=== PATIENT | female | born 1985 | race Caucasian/White ===

== ENCOUNTER 2022-01-01 18:42 | Emergency (ER) | payer OTHER, MEDICAID, SELFPAY ==
[2022-01-01 19:10] VITALS: BP 138/69; PULSE 104; RESP 18; TEMP 36.3; O2SAT 100; BMI 27.4
--- NOTE | 2022-01-01 20:20 | ED.SKABFB ---
HPI - Skin/Abscess/Foreign Bdy General Chief complaint: Skin/Abscess/Foreign Body Stated complaint: abcess on left upper buttock cheek Time Seen by Provider: 01/01/22 20:20 Source: patient Mode of arrival: Ambulatory Limitations: no limitations History of Present Illness HPI narrative: 36-year-old female daily smoker 36-year-old female daily smoker with history of IV drug abuse presents with a chief complaint of a worsening, painful swollen lump in her left buttock. She states that she had injected here about 1 week ago and has symptoms as stated. She denies fever chills nor nausea or vomiting. She denies runny nose, sore throat or cough. She has no chest pain or shortness of breath. Her pain is worse with palpation and she has a hard time sitting. She denies any pain with urination and has no difficulty with bowel movements. Related Data Previous Rx's Medication Instructions Recorded doxycycline hyclate 100 mg tablet 100 mg PO BID #20 tab 01/01/22 Allergies Allergy/AdvReac Type Severity Reaction Status Date / Time Iodine and Iodide Containing Allergy Verified 01/01/22 19:10 Produc Review of Systems Review of Systems Narrative: GENERAL: Denies chills, fatigue, malaise, fever, sweats. HEENT: Denies sinus pain, ear pain, sore throat, difficulty swallowing, dizziness. RESPIRATORY: Denies dyspnea, cough, wheezing, hemoptysis, sputum. CARDIOVASCULAR: Denies chest pain, palpitations, orthopnea, edema, GASTROINTESTINAL: Denies nausea, vomiting, abdominal pain, diarrhea, constipation, melena. : Denies dysuria, frequency, incontinence, hematuria, urinary retention. MUSCULOSKELETAL: denies weakness, joint pain, or bony pain SKIN: See HPI NEUROLOGIC: Denies weakness, headache, numbness, change in speech, confusion, seizures, incoordination. PSYCHIATRIC: No concerning psychosocial issues. 12 point review of systems is negative except for those stated above Patient History Social History Smoking Status: Current every day smoker Smoking Status: Current every day smoker Substance Use Type: opiates Exam Narrative Exam Narrative: GENERAL: [36] year old patient appears stated age. Well-developed patient, in mild distress. Obviously uncomfortable HEAD: Atraumatic. Normocephalic. EYES: Pupils equal round and reactive. Extraocular motions intact. No scleral icterus. No injection or drainage. ENT: Nose without bleeding, purulent drainage. Throat without erythema, tonsillar hypertrophy or exudate. Airway patent. NECK: Trachea midline. Non tender CARDIOVASCULAR: Regular rate and rhythm without murmurs, gallops, or rubs. RESPIRATORY: Clear to auscultation. Breath sounds equal bilaterally. No wheezes, rales, or rhonchi. GASTROINTESTINAL: Abdomen soft, non-tender, nondistended. EXTREMITIES: No edema or joint tenderness. BACK: Nontender without deformity or crepitance. No flank tenderness. NEURO: AOx3. SKIN: Left buttock with a large (8 x 10 cm) area of erythema, warmth, tenderness and induration, no obvious fluctuance, no drainage or breaks in the skin Initial Vital Signs Initial Vital Signs: Vital Signs Temperature 97.4 F L 01/01/22 19:10 Pulse Rate 104 H 01/01/22 19:10 Respiratory Rate 18 01/01/22 19:10 Blood Pressure 138/69 01/01/22 19:10 Pulse Oximetry 100 01/01/22 19:10 Procedures Abscess I/D I&D #1: Site: other (Left buttock) Side (if applicable): left Sedation/analgesia: midazolam Local Anesthetic: bupivacaine 0.5% Amount of anesthesia used (mL): 10 Technique: incised with #11 blade Amount of fluid expressed (mL): 20 Irrigation: No Course Orders Ordered: ED Orders 01/02/22 01:03 Wound Culture and Gram Stain Stat Discontinued Medications Bupivacaine HCl (Bupivacaine 0.5% (Pf) Vial) 5 ml SUBCUT NOW ONE Stop: 01/01/22 21:46 Last Admin: 01/01/22 22:27 Dose: 5 ml Documented by: FANY Doxycycline Hyclate (Doxycycline Hyclate 100 Mg Tablet) 100 mg PO NOW ONE Stop: 01/01/22 23:53 Last Admin: 01/02/22 00:00 Dose: 100 mg Documented by: FANY Midazolam HCl (Midazolam 2 Mg/2 Ml Vial) 2 mg IV NOW ONE Stop: 01/01/22 21:45 Last Admin: 01/01/22 22:03 Dose: Not Given Documented by: FANY Midazolam HCl (Midazolam 5 Mg/Ml Vial) 10 mg NASAL NOW ONE Stop: 01/01/22 22:01 Last Admin: 01/01/22 22:26 Dose: 10 mg Documented by: FANY Vital Signs Vital signs: Vital Signs - 8 hr 01/02/22 00:01 Pulse Rate 90 Respiratory Rate 18 Blood Pressure 109/50 L Pulse Oximetry 100 MDM - Skin/Abscess/Foreign Bdy MDM Narrative Medical decision making narrative: Patient has a worsening left buttock abscess over the past week. She shows no signs of sepsis. She tolerates bedside incision and drainage with midazolam and ring block relatively well. A large amount of purulent material was removed and sent for culture. I did discuss that there is likely more to be removed but that was unreasonable to attempt further incision and drainage at the bedside and she would likely need a trip to the OR for most appropriate treatment. She understands this but would prefer to take oral antibiotics and follow closely as she has been working very hard to get into a rehab in detox facility and has an appointment in the morning. She understands that she may return immediately if she were to change her mind and has been given extensive return precautions. Questions answered to her apparent satisfaction Discharge Plan Departure Patient Disposition: Home Clinical Impression: Abscess of skin or subcutaneous tissue Qualifiers: Site of cutaneous abscess: buttock Qualified Code(s): L02.31 - Cutaneous abscess of buttock Instructions: DI for Skin Abscess Activity Restrictions/Additional Instructions: *You have been diagnosed with [large cutaneous abscess left buttock] *What to do: *Please continue to take your regular medications as directed. [x ] New medication prescriptions sent to your pharmacy: [ [facility]] [ ] New medication written as a paper prescription [ ] No new medications given *Please follow up with your primary care provider in 2-3 days, call for an appointment. Let them know you were seen in the Emergency Department and that we ask that you be seen in follow up. We will electronically transmit a record of today's note if your PCP is in our system *If you do not have a primary care provider please contact the [facility] Resource line at [phone]. They will ask some questions about your medical history and help get you set up with a doctor in the community. *Return to Emergency Department if you should have any new, worsening or concerning symptoms, such as [fever greater than 101 F, shaking chills, worsening pain, persistent vomiting or other bothersome symptoms] Prescriptions: New doxycycline hyclate 100 mg tablet 100 mg PO BID Qty: 20 0RF Referrals: Karma Mendez ARNP [Primary Care Provider] -
[2022-01-01] MEDS: MIDAZOLAM 5 MG/ML VIAL 10 MG NASAL (22:26)
[2022-01-01] MEDS: BUPIVACAINE 0.5% (PF) VIAL 5 ML SUBCUT (22:27)
[2022-01-02] MEDS: DOXYCYCLINE HYCLATE 100 MG TABLET PO
[2022-01-02 00:01] VITALS: BP 109/50; PULSE 90; RESP 18; O2SAT 100
== END 2022-01-02 00:08 | disposition home or self-care (01) ==
PROVIDERS: Emergency Provider Emergency Medicine; PCP Nurse Practitioner
DX: L02.31 Cutaneous abscess of buttock (principal)
CPT/HCPCS: 10060; 87070; 87075; 87077; 87186; 87205; 99283; J2250